=== PATIENT | female | born 2000 ===

== ENCOUNTER 2022-09-25 09:13 | Outpatient (REF) | payer MEDICARE, MEDICAID, SELFPAY | END 2022-09-25 09:14 | disposition home or self-care (01) | LOC: HO.LAB 09:13 | PROVIDERS: Visit Provider Advanced Practice Midwife | DX: Z01.419 Encounter for gynecological examination (general) (routine) without abnormal findings (principal); N92.0 Excessive and frequent menstruation with regular cycle; Z20.2 Contact with and (suspected) exposure to infections with a predominantly sexual mode of transmission | CPT/HCPCS: 0353U; 87480; 87510; 87660; 88142; 99202 ==

== ENCOUNTER 2022-09-25 10:16 | Outpatient (REF) | payer MEDICARE, MEDICAID, SELFPAY ==
[2022-09-25 16:56] LABS: CT PCR NOT DETECTED (Not Detect.); NG PCR NOT DETECTED (Not Detect.)
[2022-09-26 11:10] LABS: BV Int Neg Control Negative (Negative); BV Int Pos Control Positive (Positive)
== END 2022-09-25 10:17 | disposition home or self-care (01) ==
LOC: HO.LNP 10:16
PROVIDERS: Visit Provider Advanced Practice Midwife
DX: Z13.89 Encounter for screening for other disorder (principal)
CPT/HCPCS: 0353U; 87480; 87510; 87660; 88142

== ENCOUNTER → 2022-12-23 15:07 | Outpatient (BNVA) | payer MEDICARE, MEDICAID, SELFPAY | PROVIDERS: Visit Provider Advanced Practice Midwife | DX: N94.6 Dysmenorrhea, unspecified (principal); U07.0 Vaping-related disorder; Z30.09 Encounter for other general counseling and advice on contraception | CPT/HCPCS: 81025; 99212 ==